=== PATIENT | male | born 1945 | race African-American/Black ===

== ENCOUNTER 2019-03-06 11:39 | Emergency (ER) | payer OTHER ==
[~2019-03-06] VITALS: Ht 177.8 cm; Wt 90.0 kg
[2019-03-06] MEDS ORDERED: DEXTROSE 50% WATER 50ML SYRINGE IV ONE ×2 (11:47→12:30)
[2019-03-06 12:19] LABS: BASOPHILS % 1.1 % (0.0-2.0); EOSINOPHILS % 2.8 % (0.0-5.0); HEMATOCRIT. 34.4 % (42.0-52.0); HEMOGLOBIN. 11.6 g/dL (14.0-18.0); LYMPHOCYTES % 26.4 % (20.0-50.0); MEAN CORPUSCULAR VOLUME 106.6 fL (80.0-94.0); MEAN PLATELET VOLUME 11.4 fl (7.4-10.4); MONOCYTES % 7.3 % (2.0-8.0); NEUTROPHILS % 62.4 % (40.0-76.0); PLATELET 83 x1000/uL (130-400); RED BLOOD CELL COUNT 3.23 mill/uL (4.7-6.1); RED CELL DISTRIBUTION WIDTH 22.4 % (11.6-14.6)
[2019-03-06 12:26] LABS: CHLORIDE 102 mEq/L (98-107)
[2019-03-06 12:29] LABS: INR 1.2; PARTIAL THROMBOPLASTIN TIME 34.6 sec (23.4-31.0); PROTHROMBIN TIME 12.7 sec (9.6-11.0)
[2019-03-06 12:46] LABS: PLATELET ESTIMATE DECREASED
[2019-03-06 15:35] VITALS: BP 128/66
== END 2019-03-06 15:51 | disposition short-term general hospital (02) ==
LOC: ER 12:17 → CANBEDREQ 15:40 → ER 15:51
DX: R55 Syncope and collapse (principal); E11.649 Type 2 diabetes mellitus with hypoglycemia without coma; E11.22 Type 2 diabetes mellitus with diabetic chronic kidney disease; N17.9 Acute kidney failure, unspecified; I48.91 Unspecified atrial fibrillation; I12.0 Hypertensive chronic kidney disease with stage 5 chronic kidney disease or end stage renal disease; N18.6 End stage renal disease; I44.0 Atrioventricular block, first degree; D61.818 Other pancytopenia; F17.210 Nicotine dependence, cigarettes, uncomplicated; Z99.2 Dependence on renal dialysis; Z79.01 Long term (current) use of anticoagulants; Z79.899 Other long term (current) drug therapy
CPT/HCPCS: 36415; 71045; 82962; 83880; 84484; 86850; 86900; 93005; 96374; 99291